=== PATIENT | female | born 1995 | race Caucasian/White ===

== ENCOUNTER 2018-04-20 16:00 | Emergency (ER) | payer SELFPAY ==
[2018-04-20 16:02] VITALS: BP 148/92; PULSE 65; RESP 17; TEMP 37.5; O2SAT 97; BMI 26.0
--- NOTE | 2018-04-20 16:21 | ED.DCSUM_ITS ---
- ER Visit Summary Date of Service: 04/20/18 Chief Complaint: Abdominal pain, nausea, vomiting, and diarrhea History of Present Illness: The patient is a 23 F who presents with abdominal pain, nausea, vomiting, and diarrhea that is been intermittent over the past 3 weeks. Patient states she had an episode of nausea vomiting and diarrhea that improved. Patient states she went back to work and a coworker had similar symptoms. Patient states she developed symptoms again. Patient states her vomiting is undigested food and stomach contents. Patient denies any hematemesis or coffee-ground emesis. Patient states her diarrhea is watery. Patient denies any melena or hematochezia. Patient describes her pain as cramping. Patient states the pain is worse over the epigastric and left upper quadrant areas. Patient denies any dysuria hematuria. Patient states that she had a seizure today. Patient states she has a history of absence seizure and partial complex seizures. Patient states she has been taking her seizure medicine as prescribed. Physical Examination: Vital signs are stable. Patient is afebrile. Patient is in no acute distress. Oral mucosa is pink and moist. Neck is supple. Trachea is midline. There is no JVD noted. Heart was regular rate and rhythm. Lungs are clear and equal bilateral. Abdomen is soft. Bowel sounds are normal. There is tenderness over the left upper quadrant and epigastric areas. There is no rebound or guarding noted. Cranial nerves II through XII are intact. There are no focal motor or sensory deficits noted. The remaining physical exam is within normal limits. Test Results: CBC and comprehensive metabolic profile were within normal limits. Lipase was slightly elevated at 549. Tegretol level was less than 0.5. Urinalysis does not show any evidence of urinary tract infection. Emergency Department Course and Treatment: Patient was given IV fluids and Zofran here. Patient felt better on reevaluation. Patient was instructed to start with a clear liquid diet and advance as tolerated. Patient was instructed to continue her Tegretol as previously prescribed. Patient was instructed to follow-up with her primary care physician in 5-7 days. Patient understood and was agreeable with the plan. All questions were answered. Disposition: Discharge home Impression: Nausea vomiting and diarrhea This note was generated with [employer] software. It may contain incorrect words, spelling, and punctuation that were not noted in review of the chart prior to signing ED Disposition - Plan for ED Patient: Disposition: Home or Assisted Living Chief Complaint: Abd Pain Diagnosis: Nausea vomiting and diarrhea Instructions: ED Diet Vomiting Diarrhea Prescriptions: Ondansetron [Zofran Odt] 4 mg PO Q8H PRN PRN #10 tab.rapdis PRN Reason: Nausea/Vomiting Referrals: Sushil Tong MD [STAFF PHYSICIAN] -
[2018-04-20] MEDS: 0.9% Normal Saline 1,000 ML 1000 ML IV (16:50)
[2018-04-20] MEDS: Ondansetron 4 MG/2 ML Vial IV (16:50)
[2018-04-20 17:06] LABS: Red Blood Cells-Urine 0 SEEN /hpf (0-5)
[2018-04-20 17:09] LABS: Color, Urine Yellow (Yellow); Glucose, Dipstick Normal (Normal); Ketone-Dipstick 15 mg/dl (Negative); Leukocyte Esterase-Dipstick 100 /ul (Negative); Nitrite-Dipstick Negative (Negative); Occult Blood-Urine 10 /ul (Negative); Protein-Dipstick 15 mg/dl (Negative); Urine Bilirubin Dipstick Negative (Negative); Urine Clarity Clear (Clear); Urine Urobilinogen 1 mg/dl (Normal)
[2018-04-20 17:13] LABS: Internal QC Validated? YES +Cl - CLEAR BKGD; Pregnancy, Urine Negative Negative
[2018-04-20 17:15] LABS: Bacteria 1+ /hpf (None Seen); Mucous, Urine 1+ /hpf (<or=2+); Squamous Epithelial Cells - UA 10-25 SEEN /hpf (5-10); White Blood Cells 0-5 SEEN /hpf (0-5)
[2018-04-20 17:20] LABS: Absolute Lymphocyte Count 2.74 X10^3/ul (0.83-4.51); Absolute Neutrophil Count 7.4 X10^3/uL (2.0-7.7); Basophil# 0.01 X10^3/uL; Basophil% 0.1 % (0-1); Eosinophil# 0.07 X10^3/uL; Eosinophils% 0.6 % (0-5); Hematocrit 47.4 % (37-47); Hemoglobin 16.1 g/dl (12.0-15.0); Lymphocyte # 2.74 X10^3/ul (4.0); Lymphocyte % 25.1 % (19-41); Mean Corpuscular Hgb 31.6 pg (27.0-32.0); Mean Corpuscular Volume 93.1 fL (81-99); Mean Platelet Vol. 8.7 fl (6.2-12.0); Monocyte# 0.72 X10^3/uL; Monocyte% 6.6 % (0-10); Neutrophil # 7.38 X10^3/uL (2.7-7.7); Neutrophil % 67.5 % (47-70); Platelet Count 299 K/mm3 (150-450); RBC Distribution Width CV 12.1 % (11.6-14.6); RBC Distribution Width SD 41.1 fl (35.1-43.9); Red Blood Count 5.09 M/mm3 (4.2-5.4); White Blood Count 10.9 K/mm3 (4.4-11.0)
[2018-04-20 17:22] LABS: Amorphous Sediment 2+
[2018-04-20 17:24] LABS: POSITIVE COUNT NO; POSITIVE DIFFERENTIAL NO; POSITIVE MORPHOLOGY NO
[2018-04-20 17:25] LABS: ALB/GLOB Ratio 1.1 RATIO (0.9-2.4); AST(SGOT) 14 U/L (15-37); Alanine Aminotransfer ALT/SGPT 21 U/L (13-56); Albumin, Serum 4.4 g/dL (3.2-5.0); Alkaline Phosphatase 107 U/L (45-117); Anion Gap 8 (5-15); BUN 14 mg/dL (7-18); BUN/Creat Ratio 15.5 RATIO (10-20); Calcium,Total 9.3 mg/dL (8.5-10.1); Chloride 103 mmol/L (98-107); EST Glomerular Filtration Rate 81 mL/min (>60); Est Glom Filt Rate - Afr Amer 99 mL/min (>60); Estimated Creatinine Clearance 97.23 ml/min; Globulin 3.9 g/dL (2.2-4.2); Glucose 84 mg/dL (74-106); Lipase 549 U/L (73-393); Potassium 3.6 mmol/L (3.5-5.1); Protein, Total 8.3 g/dL (6.4-8.2); Sodium Level 136 mmol/L (136-145)
[2018-04-20 17:59] LABS: Carbamazepine (Tegretol) < 0.5 ug/mL (4.0-12.0)
[2018-04-20 19:16] VITALS: BP 127/77; PULSE 50; RESP 12; O2SAT 95; O2SAT 98
== END 2018-04-20 19:17 | disposition home or self-care (01) ==
PROVIDERS: Emergency Provider Emergency Medicine; Family Provider Nurse Practitioner Family; PCP Nurse Practitioner Family
DX: R11.2 Nausea with vomiting, unspecified (principal); R19.7 Diarrhea, unspecified; R10.9 Unspecified abdominal pain; R51 Headache; R50.9 Fever, unspecified; G40.909 Epilepsy, unspecified, not intractable, without status epilepticus
CPT/HCPCS: 80053; 80156; 81001; 81025; 83690; 85025; 96361; 96374; 99283; J7030; J2405

== ENCOUNTER 2020-08-07 12:35 | Emergency (ER) | payer MEDICAID, SELFPAY ==
[2020-08-07 12:37] VITALS: BP 131/82; PULSE 70; RESP 16; TEMP 36.7; O2SAT 97; BMI 25.4
--- NOTE | 2020-08-07 13:11 | ED.VISSUMM ---
- ER Visit Summary Date of Service: 08/07/20 Chief Complaint: Abdominal pain History of Present Illness: The patient is a [address] Tineo. Patient is transgender. He reports that she had abdominal pain for the past week. It is a continuous pain that waxes and wanes. States that sharp at times and dull at other times. Stated 10 at worst and 5-10 currently. Is relieved by the position. It is worsened by sitting up. He reports that he has been nausea and vomited 3-4 times a day for the past 5 days. No blood in his emesis. No diarrhea. Patient reports that 5 days ago he was told he would had a UTI and was placed on Bactrim. He reports that he has been able to keep this down. Patient is also concerned because he has been on Zofran and Reglan at home. He is taking Benadryl with Reglan. Yesterday over the course of 12 hours he took 100 mg of Benadryl and is concerned that he may have overdosed on accident. Physical Examination: Vitals: Stable. Afebrile. General: Well-nourished and well-developed. Head: Normocephalic atraumatic. Neck: Supple, no lymphadenopathy. No JVD. Nontender. Cardiovascular: Regular rate and rhythm. No murmurs. Respiratory: No respiratory distress. Clear to auscultation bilaterally. Abdominal: Soft, mild suprapubic tenderness to palpation, nondistended, normal bowel sounds. No guarding, rebound, or peritoneal signs. Back: Nontender. Extremities: Nontender, no edema. Skin: Normal color, no rash. Neurologic: Alert and oriented ?3. Cranial nerves II through XII are intact. Normal strength and sensation. Psych: Normal affect. Test Results: CBC shows a hemoglobin of 15.6 and lymphocytes of 19. Chem-7 shows a potassium of 3.3 and creatinine 1.23. UA shows leukocytes, blood, ketones, 5-10 epithelial cells, and 1+ bacteria. test is negative. Emergency Department Course and Treatment: Patient had an IV placed. He is given a liter normal saline. Is given Zofran and Toradol IV. He is resting comfortably. He is not vomited while here. Treatment Plan: Patient will be discharged home with instructions to continue the Reglan and Zofran. Follow-up with her primary care physician 1 to 2 days if not improving. Return to the emergency department for any worsening symptoms. Disposition: To home in improved and stable condition. Impression: 1. Abdominal pain, uncertain cause. This note was generated with [employer] dictation software. It may contain incorrect words, spelling, and punctuation that were not noted in review of the chart prior to signing ED Disposition - Plan for ED Patient: Instructions: ED Vomiting (Adult) Prescriptions: Ondansetron [Zofran Odt] 4 mg PO Q8H PRN PRN #10 tablet PRN Reason: Nausea Referrals: Caio Pacheco [employer] MARKETING MANAGER, [employer]ETING MANAGER-C [NON-STAFF] - 1-2 Days if not improving
[2020-08-07 13:27] LABS: Absolute Lymphocyte Count 1.38 X10^3/uL (0.83-4.51); Absolute Neutrophil Count 5.2 X10^3/uL (2.0-7.7); Basophil# 0.03 X10^3/uL; Basophil% 0.4 % (0-1); Eosinophil# 0.05 X10^3/uL; Eosinophils% 0.7 % (0-5); Hematocrit 46.4 % (37-47); Hemoglobin 15.6 g/dL (12.0-15.0); Lymphocyte # 1.38 X10^3/ul (4.0); Lymphocyte % 18.8 % (19-41); Mean Corp Hgb Conc 33.6 g/dL (32-36); Mean Corpuscular Hgb 30.8 pg (27.0-32.0); Mean Corpuscular Volume 91.5 fL (81-99); Mean Platelet Vol. 8.5 fl (6.2-12.0); Monocyte# 0.72 X10^3/uL; Monocyte% 9.8 % (0-10); NRBC Flagged by Analyzer 0 % (0-5); Neutrophil # 5.16 X10^3/uL (2.7-7.7); Platelet Count 347 K/mm3 (150-450); RBC Distribution Width CV 11.4 % (11.6-14.6); RBC Distribution Width SD 38.6 fl (35.1-43.9); Red Blood Count 5.07 M/mm3 (4.2-5.4); White Blood Count 7.4 K/mm3 (4.4-11.0)
[2020-08-07 13:35] LABS: Internal QC Validated? YES +Cl - CLEAR BKGD; Pregnancy, Serum, hCG Quali. NEGATIVE Negative
[2020-08-07 13:36] LABS: Anion Gap 9 (5-15); BUN 7 mg/dL (7-18); BUN/Creat Ratio 5.7 RATIO (10-20); Calcium,Total 9.5 mg/dL (8.5-10.1); Chloride 103 mmol/L (98-107); Creatinine, Serum 1.23 mg/dL (0.55-1.02); EST Glomerular Filtration Rate 56 mL/min (>60); Est Glom Filt Rate - Afr Amer 68 mL/min (>60); Glucose 87 mg/dL (74-106); Potassium 3.3 mmol/L (3.5-5.1); Sodium Level 138 mmol/L (136-145)
[2020-08-07 13:54] LABS: Color, Urine Yellow (Yellow); Glucose, Dipstick Normal (Normal); Ketone-Dipstick 50 mg/dl (Negative); Leukocyte Esterase-Dipstick 100 /ul (Negative); Mucous, Urine 0 SEEN /hpf (<or=2+); Nitrite-Dipstick Negative (Negative); Occult Blood-Urine 250 /ul (Negative); Protein-Dipstick 30 mg/dl (Negative); Red Blood Cells-Urine 0 SEEN /hpf (0-5); Urine Bilirubin Dipstick Negative (Negative); Urine Clarity Sl. Cloudy (Clear); Urine Urobilinogen 1 mg/dl (Normal)
[2020-08-07 13:58] LABS: Bacteria 1+ /hpf (None Seen); Squamous Epithelial Cells - UA 5-10 SEEN /hpf (5-10)
[2020-08-07] MEDS: 0.9% Normal Saline 1,000 ML 1000 ML IV (13:58)
[2020-08-07] MEDS: Ketorolac 15 MG/ML Vial IV (13:58)
[2020-08-07 13:59] LABS: White Blood Cells 0-5 SEEN /hpf (0-5)
[2020-08-07] MEDS: Ondansetron 4 MG/2 ML Vial IV (13:59)
[2020-08-07 14:03] VITALS: BP 121/82; PULSE 66; O2SAT 97
[2020-08-07 14:25] VITALS: PULSE 66; RESP 15; O2SAT 97
== END 2020-08-07 14:26 | disposition home or self-care (01) ==
PROVIDERS: Emergency Provider Emergency Medicine
DX: R10.9 Unspecified abdominal pain (principal); R11.2 Nausea with vomiting, unspecified
CPT/HCPCS: 80048; 81001; 84703; 85025; 96361; 96374; 96375; 99283; J7030; A4216; J2405

== ENCOUNTER 2021-01-27 20:13 | Emergency (ER) | payer MEDICAID, SELFPAY ==
[2021-01-27 20:15] VITALS: BP 130/82; PULSE 74; RESP 18; TEMP 36.1; O2SAT 97; BMI 23.8
[2021-01-27 20:30] LABS: Bacteria 0 SEEN /hpf (None Seen); Mucous, Urine 0 SEEN /hpf (<or=2+)
[2021-01-27 20:35] LABS: Color, Urine Yellow (Yellow); Glucose, Dipstick Normal (Normal); Ketone-Dipstick 15 mg/dl (Negative); Leukocyte Esterase-Dipstick 25 /ul (Negative); Nitrite-Dipstick Negative (Negative); Occult Blood-Urine 50 /ul (Negative); Protein-Dipstick 15 mg/dl (Negative); Urine Bilirubin Dipstick Negative (Negative); Urine Clarity Clear (Clear); Urine Urobilinogen Normal (Normal)
[2021-01-27 20:45] LABS: Red Blood Cells-Urine 0-5 SEEN /hpf (0-5); Squamous Epithelial Cells - UA 5-10 SEEN /hpf (5-10); White Blood Cells 0-5 SEEN /hpf (0-5)
--- NOTE | 2021-01-27 22:50 | US_ITS ---
STUDY: ULTRASOUND TRANSVAGINAL CLINICAL: Female, 25 years old. pain, bleeding TECHNIQUE: Transvaginal COMPARISON: None. FINDINGS: Normal uterine size measuring 7.1 x 5.4 x 3.3 cm in maximal craniocaudal dimension. There are no myometrial masses. Normal endometrial thickness measuring 2.2 mm. There are no endometrial masses, and there is no fluid in the endometrial cavity. Metallic IUD in the endometrium Normal uterine cervix. Normal right ovary, measuring 3.5 x 2.4 x 2.4 cm. There are multiple follicles without a dominant cyst. Normal left ovary, measuring 2.7 x 2.2 x 1.6 cm. There are multiple follicles without a dominant cyst. There is no free fluid in the pelvis. Polycystic ovary disease: No. US/Transvaginal Non- IMPRESSION: Metallic IUD in the endometrium. Otherwise, unremarkable exam Electronically Signed: Hugo Childers DO at 0:22 EDT Tel , Service support ,
--- NOTE | 2021-01-27 22:54 | EDS_ITS ---
HPI HPI - GI History of Present Illness Chief Complaint: Nausea/Vomiting/Diarrhea Abdominal Pain/Flank Pain Onset: Days (5) Context: Onset with activity Timing: Continuous and Waxes and wanes Quality: Cramping Location: - (Lower abdomen/pelvis) Current Severity: Moderate Maximum Severity: Moderate Worsened by: Nothing Relieved by: Nothing Nausea/Vomiting/Emesis GI Symptom: Positive for Nausea and Vomiting Diarrhea/Melena/Hematochezia GI Symptom: Negative for Diarrhea, Melena and Hematochezia Narrative Narrative: Transgender biologic female presenting with lower abdominal pain for 5 days along with vaginal bleeding. Has not had a menstrual cycle in a long time because of using testosterone patches. Nausea associated with this and occasional mild emesis nonbloody. No fevers or chills. Denies chance of . Waiting to get into [facility], trying to get an appointment 2 weeks away. PFSH PFSH Medical History Transgender Home Medications carbamazepine [Tegretol] 400 mg PO BID 04/20/18 [History Last Taken Unknown] gabapentin 800 mg PO BID 04/20/18 [History Last Taken Unknown] ondansetron 4 mg PO Q8H PRN PRN #10 tab.rapdis 04/20/18 [Rx Last Taken Unknown] ondansetron 4 mg PO Q8H PRN PRN #10 tab 08/07/20 [Rx Last Taken Unknown] testosterone 2 ea TD DAILY 08/07/20 [History Last Taken Unknown] doxycycline monohydrate 100 mg PO BID 01/27/21 [History Last Taken Unknown] ondansetron 8 mg PO Q8H PRN PRN #20 tab 01/28/21 [Rx Last Taken Unknown] Allergy/AdvReac Type Severity Reaction Status Date / Time amoxicillin [Amoxicillin] Allergy Severe Anaphylaxis Verified 04/20/18 16:02 Penicillins [PCN] Allergy Anaphylaxis Verified 08/07/20 12:37 Social History Smoking Status: Never smoker ROS ROS ED Constitutional Constitutional ED: Denies chills or fever(s) Eyes Eyes: Denies change in vision or diplopia ENT ENT ED: Denies rhinorrhea or sore throat Cardiovascular Cardiovascular: Denies chest pain or palpitations Respiratory/Chest Respiratory/Chest: Denies cough or dyspnea Gastrointestinal Gastrointestinal: Reports as per HPI, abdominal pain, nausea and vomiting; Denies diarrhea Genitourinary Genitourinary ED: Reports vaginal bleeding; Denies dysuria, hematuria or urinary incontinence Musculoskeletal Musculoskeletal: Denies back pain or neck pain Integumentary Denies abscess or rash Neurologic Neurologic: Denies headache(s), paresthesias or weakness Psychiatric Psychiatric: Denies anxiety or suicidal thoughts EXAM Physical Exam Const Vital Signs: 01/27/21 20:15 01/27/21 23:35 Temperature 96.9 F L Temperature Source Temporal Pulse Rate 74 80 Respiratory Rate 18 17 Blood Pressure 130/82 H Blood Pressure Mean 98 Pulse Ox 97 99 Oxygen Delivery Method Room Air Room Air Positive well nourished and well developed Constitutional Narrative: Well-appearing General Appearance ED: well developed and NAD HEENT Reports moist mucous membranes normocephalic and atraumatic Eyes PERRL and EOMs intact bilaterally Neck full ROM and supple Resp normal respiratory effort and clear to auscultation bilaterally Cardio regular rate, regular rhythm and no murmurs Rate: Negative for tachycardic GI non-distended GI Narrative: Tender throughout lower abdomen/pelvis, nonfocal. Auscultation: normoactive bowel sounds Palpation: soft Speculum Exam - Vagina: vaginal bleeding Back/Spine no CVA tenderness General Back: other FROM Extremity normal to inspection General Extremety ED: Negative for edema, pulses abnormal or tenderness General Extremity: Negative for edema or pulses abnormal Neuro oriented x3, CN's II-XII intact bilaterally and no sensory deficits noted Sensorium / Orientation: awake and alert Motor Exam: strength 5/5 throughout Skin no rashes or lesions noted and no wounds MDM MDM MDM Narrative Medical decision making narrative: Labs are unremarkable, she has no leukocytosis and her differential is normal with her 8.0 white blood count. Urinalysis unremarkable, negative, transvaginal ultrasound was obtained, it shows an unremarkable uterus with an IUD present as below. Good blood flow to both ovaries. No evidence of rupture from the IUD which is in place. I do not think she has appendicitis or cystitis or any other emergent condition right now. She was treated with Toradol and Zofran and did feel much better with regards to pain and nausea. At this time I think it is safe for her to follow-up with [employer] [facility] as scheduled unless she gets worse, but with a hemoglobin of 14 and menstrual-like bleeding I suspect this will not last for 2 more weeks, but if it does not she feels presyncopal, advised to return. Prescribe Zofran and advised to take Aleve as needed for pain and she is comfortable with that plan. Lab Data Attestation: I reviewed the patient's lab results. Labs: Laboratory Results - last 24 hr 01/27/21 01/27/21 01/27/21 20:20 20:20 23:30 WBC 8.0 RBC 4.60 Hgb 14.3 Hct 42.9 MCV 93.3 MCH 31.1 MCHC 33.3 RDW Std Deviation 39.0 RDW Coeff of [place] 11.5 L Plt Count 306 MPV 8.4 Immature Gran % (Auto) 0.400 Neut % (Auto) 65.2 Lymph % (Auto) 26.8 [place] % (Auto) 6.4 Eos % (Auto) 1.0 Baso % (Auto) 0.2 Absolute Neuts (auto) 5.2 Absolute Lymphs (auto) 2.15 Nucleated RBC % 0 Sodium Potassium Chloride Carbon Dioxide Anion Gap BUN Creatinine Estim Creat Clear Calc Est GFR (MDRD) Af Amer Est GFR (MDRD) Non-Af BUN/Creatinine Ratio Glucose Calcium Urine Color Yellow Urine Clarity Clear Urine pH 6.0 Ur Specific [place] 1.010 Urine Protein 15 H Urine Glucose (UA) Normal Urine Ketones 15 H Urine Occult Blood 50 H Urine Nitrite Negative Urine Bilirubin Negative Urine Urobilinogen Normal Ur Leukocyte Esterase 25 H Urine RBC 0-5 SEEN Urine WBC 0-5 SEEN Ur Squamous Epith Cells 5-10 SEEN Urine Bacteria 0 SEEN Urine Mucus 0 SEEN Urine Test Negative 01/27/21 23:30 WBC RBC Hgb Hct MCV MCH MCHC RDW Std Deviation RDW Coeff of [place] Plt Count MPV Immature Gran % (Auto) Neut % (Auto) Lymph % (Auto) [place] % (Auto) Eos % (Auto) Baso % (Auto) Absolute Neuts (auto) Absolute Lymphs (auto) Nucleated RBC % Sodium 140 Potassium 3.6 Chloride 107 Carbon Dioxide 25.0 Anion Gap 8 BUN 9 Creatinine 0.88 Estim Creat Clear Calc 97.73 Est GFR (MDRD) Af Amer 99 Est GFR (MDRD) Non-Af 82 BUN/Creatinine Ratio 10.2 Glucose 89 Calcium 9.1 Urine Color Urine Clarity Urine pH Ur Specific [place] Urine Protein Urine Glucose (UA) Urine Ketones Urine Occult Blood Urine Nitrite Urine Bilirubin Urine Urobilinogen Ur Leukocyte Esterase Urine RBC Urine WBC Ur Squamous Epith Cells Urine Bacteria Urine Mucus Urine Test Radiography Diagnostic Testing: Radiology Impression Transvaginal US 01/27/21 22:50 IMPRESSION: Metallic IUD in the endometrium. Otherwise, unremarkable exam Electronically Signed: Hugo Childers DO at 0:22 EDT Tel , Service support , Discharge Plan Triage Chief Complaint: Nausea/Vomiting/Diarrhea ED Provider: Thor Noyola Dx/Rx/DC Orders Clinical Impression: Acute pelvic pain, female, DUB (dysfunctional uterine bleeding) Instructions: ED Dysfunctional Uterine Bleeding Prescriptions: New ondansetron [ondansetron] 4 MG tablet 8 mg PO Q8H PRN PRN (Reason: Nausea) Qty: 20 RF: 0 No Action carbamazepine [Tegretol] 200 MG tablet 400 mg PO BID RF: 0 gabapentin 800 MG tablet 800 mg PO BID RF: 0 ondansetron 4 MG tablet,disintegrating 4 mg PO Q8H PRN PRN (Reason: Nausea/Vomiting) Qty: 10 RF: 0 testosterone 1 EACH patch 24 hour 2 ea TD DAILY RF: 0 ondansetron 4 MG tablet 4 mg PO Q8H PRN PRN (Reason: Nausea) Qty: 10 RF: 0 doxycycline monohydrate 100 mg Tablet 100 mg PO BID RF: 0 Referrals: Dotty Tineo [Other] [employer], Doctor referred to [Other] - Keep Ki appointment (or sooner if able; if you need referral, see next physician on this sheet) Christine Mayer MD [STAFF PHYSICIAN] - Disposition Disposition: Home, Self Care
[2021-01-27 23:12] LABS: Internal QC Validated? YES +Cl - CLEAR BKGD; Pregnancy, Urine Negative Negative
[2021-01-27] MEDS: Ondansetron 4 MG/2 ML Vial IV (23:33)
[2021-01-27 23:35] VITALS: PULSE 80; RESP 17; O2SAT 99
[2021-01-27 23:35] LABS: Absolute Lymphocyte Count 2.15 X10^3/uL (0.83-4.51); Absolute Neutrophil Count 5.2 X10^3/uL (2.0-7.7); Basophil# 0.02 X10^3/uL; Basophil% 0.2 % (0-1); Eosinophil# 0.08 X10^3/uL; Hematocrit 42.9 % (37-47); Hemoglobin 14.3 g/dL (12.0-15.0); Lymphocyte # 2.15 X10^3/ul (0.83-4.51); Lymphocyte % 26.8 % (19-41); Mean Corp Hgb Conc 33.3 g/dL (32-36); Mean Corpuscular Hgb 31.1 pg (27.0-32.0); Mean Corpuscular Volume 93.3 fL (81-99); Mean Platelet Vol. 8.4 fl (6.2-12.0); Monocyte# 0.51 X10^3/uL; Monocyte% 6.4 % (0-10); NRBC Flagged by Analyzer 0 % (0-5); Neutrophil # 5.22 X10^3/uL (2.7-7.7); Neutrophil % 65.2 % (47-70); Platelet Count 306 K/mm3 (150-450); RBC Distribution Width CV 11.5 % (11.6-14.6)
[2021-01-27 23:51] LABS: Anion Gap 8 (5-15); BUN 9 mg/dL (7-18); BUN/Creat Ratio 10.2 RATIO (10-20); Calcium,Total 9.1 mg/dL (8.5-10.1); Chloride 107 mmol/L (98-107); Creatinine, Serum 0.88 mg/dL (0.55-1.02); EST Glomerular Filtration Rate 82 mL/min (>60); Est Glom Filt Rate - Afr Amer 99 mL/min (>60); Estimated Creatinine Clearance 97.73 ml/min; Glucose 89 mg/dL (74-106); Potassium 3.6 mmol/L (3.5-5.1); Sodium Level 140 mmol/L (136-145)
[2021-01-28] MEDS: Ketorolac 30 MG/ML Syringe IV (00:07)
[2021-01-28 01:01] VITALS: BP 132/74; PULSE 76; RESP 19; TEMP 36.7; O2SAT 97
[2021-01-28 01:03] VITALS: RESP 17
== END 2021-01-28 01:03 | disposition home or self-care (01) ==
PROVIDERS: Emergency Provider Emergency Medicine
DX: N93.8 Other specified abnormal uterine and vaginal bleeding (principal); R10.2 Pelvic and perineal pain; R11.2 Nausea with vomiting, unspecified
CPT/HCPCS: 76830; 80048; 81001; 81025; 85025; 93976; 96374; 96375; 99283; A4216; J2405

== ENCOUNTER 2022-09-02 12:53 | Emergency (ER) | payer MEDICAID, SELFPAY ==
[2022-09-02 12:56] VITALS: BP 128/76; PULSE 101; RESP 16; TEMP 36.7; O2SAT 98; BMI 39.2
--- NOTE | 2022-09-02 14:34 | EX.ED.DYSGE1 ---
HPI History of Present Illness Chief Complaint: General Illness Informant: patient Narrative Narrative: Patient is a 27-year-old transgender male currently undergoing testosterone treatment presenting with left buttocks pain. Patient had testosterone pellets placed at his [facility] clinic on 08/23. Since then he has been having worsening bleeding at the insertion site and feels the pellet is sticking out. Is quite painful. He spoke with his doctor, Dr. Dotty Mcnally, who recommended go to the ER. No other complaints at the time. This the first time he is received testosterone pellets. PFSH PFSH Medical History Transgender Home Medications carbamazepine 200 mg tablet (Tegretol) 400 mg PO BID 04/20/18 [History Last Taken Unknown] gabapentin 800 mg tablet 800 mg PO BID 04/20/18 [History Last Taken Unknown] ondansetron 4 mg disintegrating tablet 4 mg PO Q8H PRN PRN Nausea/Vomiting ##10 04/20/18 [Rx Last Taken Unknown] ondansetron 4 mg disintegrating tablet 4 mg PO Q8H PRN PRN Nausea #10 tabs 08/07/20 [Rx Last Taken Unknown] testosterone 2 mg/24 hour transdermal 24 hour patch 2 ea transdermal DAILY 08/07/20 [History Last Taken Unknown] doxycycline monohydrate 100 mg tablet 100 mg PO BID 01/27/21 [History Last Taken Unknown] ondansetron 4 mg disintegrating tablet 8 mg PO Q8H PRN PRN Nausea #20 tabs 01/28/21 [Rx Last Taken Unknown] Allergy/AdvReac Type Severity Reaction Status Date / Time amoxicillin [Amoxicillin] Allergy Severe Anaphylaxis Verified 04/20/18 16:02 [id number] [From Nubain] Allergy Other Verified 09/02/22 12:56 Penicillins [PCN] Allergy Anaphylaxis Verified 08/07/20 12:37 Social History Smoking Status: Never smoker ROS ROS ED Constitutional Constitutional ED: Denies chills or fever(s) Gastrointestinal Gastrointestinal: Denies abdominal pain, nausea or vomiting Integumentary Reports other Details: wound- buttocks ; Denies rash Neurologic Neurologic: Denies headache(s) or weakness Hematologic/Lymphatic Hematologic/Lymphatic: Reports easy bleeding; Denies easy bruising EXAM Physical Exam Const Vital Signs: 09/02/22 12:56 Temperature 98.1 F Temperature Source Temporal Pulse Rate 101 H Respiratory Rate 16 Blood Pressure 128/76 H Blood Pressure Mean 93 Pulse Ox 98 Oxygen Delivery Method Room Air Positive well nourished, well developed and obese General Appearance ED: well developed and NAD; Negative for pallor Nutritional Appearance: obese HEENT Reports moist mucous membranes Eyes PERRL and EOMs intact bilaterally Neck supple Chest Wall inspection of chest normal Resp normal respiratory effort Cardio regular rate and regular rhythm Extremity normal to inspection Psych mental status grossly normal Mood & Affect: anxious Skin Skin Narrative: 0.5 cm irregular bleeding wound of the right buttocks, there is white a small cylindrical foreign body that is sticking out. It is tender to palpation. Slight oozing of blood. General Skin Exam: Negative for pallor MDM MDM MDM Narrative Medical decision making narrative: Patient evaluated for pain, bleeding and foreign body to the left buttocks. Patient has a testosterone pellet that is starting to poke through. The surrounding bleeding. No signs of infection. Besides localized pain patient is otherwise well-appearing and nontoxic. Differential includes skin infection as well as foreign body to the skin. As she does not have clinical signs and symptoms consistent with skin infection and I do not think she requires antibiotics. Area is anesthetized with 1% lidocaine with epinephrine locally. Pickups used to remove it. The palate is removed in its entirety. Wound is then closed with Steri-Strips. Will allow to heal by secondary intent to help minimize risk of infection. I do not think patient needs empiric antibiotics at this time. Counseled to clean with gentle soap and water once the Steri-Strips fall off. Counseled return precautions. We will follow-up with primary care doctor for further recommendations as far as testosterone supplementation. Patient discharged home in stable condition. Is given the pellet at time of discharge per patient request. Discharge Plan Triage Chief Complaint: General Illness ED Provider: Lachelle Sanabria Dx/Rx/DC Orders Clinical Impression: Visit for wound check, Foreign body of buttock, superficial Instructions: ED Foreign Body, Soft Tissue (Removed) Prescriptions: No Action carbamazepine [Tegretol] 200 MG tablet 400 mg PO BID gabapentin 800 MG tablet 800 mg PO BID Label Comments: take 1 tablet by mouth three times a day ondansetron 4 MG tablet,disintegrating 4 mg PO Q8H PRN PRN (Reason: Nausea/Vomiting) Qty: 10 0RF testosterone 1 EACH patch 24 hour 2 ea TD DAILY ondansetron 4 MG tablet 4 mg PO Q8H PRN PRN (Reason: Nausea) Qty: 10 0RF doxycycline monohydrate 100 mg Tablet 100 mg PO BID ondansetron [ondansetron] 4 MG tablet 8 mg PO Q8H PRN PRN (Reason: Nausea) Qty: 20 0RF Primary Care Provider: Dotty Tineo Referrals: Dotty Tineo [Other] Activity Restrictions/Additional Instructions: Once the Steri-Strips fall off gently clean with soap and water. The bleeding stopped now that the foreign bodies been removed. Follow-up with your doctor for further testosterone recommendations. If you develop signs of infection such as worsening pain, redness or purulent (pus like) drainage please return to the emergency room. Disposition Disposition: Home, Self Care
[2022-09-02] MEDS: Lidocaine 1% /Epi 1:100 (20ml) 20 ML Vial INFILT (15:32)
[2022-09-02] MEDS: Ibuprofen 600 MG Tablet PO (15:32)
== END 2022-09-02 15:37 | disposition home or self-care (01) ==
PROVIDERS: Emergency Provider Emergency Medicine; Visit Provider Emergency Medicine
DX: S31.824A Puncture wound with foreign body of left buttock, initial encounter (principal); E66.9 Obesity, unspecified; X58.XXXA Exposure to other specified factors, initial encounter
CPT/HCPCS: 99283